=== PATIENT | female | born 1970 ===

== ENCOUNTER 2018-01-19 08:14 | Emergency (ER) | payer OTHER ==
[2018-01-19 08:50] VITALS: BP 110/67
[2018-01-19] MEDS ORDERED: Tetan/Diph/Pertus SYR(Tdap)* 0.5 ML SYR(BOOSTRIX) use SYR IM ONE (09:14)
--- NOTE | 2018-01-19 09:22 | UC ---
Skin Complaint HPI - HPI Summary HPI Summary: Pad of left ring finger on a knife this morning at work. Patient has a 5 mm flap laceration that is not bleeding neuro,motor,circulation,sensory intact distally - History of Current Complaint Chief Complaint: UCLaceration Time Seen by Provider: 01/19/18 09:14 Stated Complaint: (L) RING FINGER LACERATION Hx Obtained From: Patient Hx Last Menstrual Period: 2011-ES, SHE THINKS BUT NOT SURE ?: No Onset/Duration: Sudden Onset, Lasting Days - 1, Still Present Timing: Constant Onset Severity: Mild Current Severity: Mild Pain Intensity: 1 Pain Scale Used: 0-10 Numeric Location: Discrete Aggravating Factor(s): Nothing Alleviating Factor(s): Nothing Associated Signs & Symptoms: Positive: Negative Related History: Trauma - With this chest knife at work - Allergy/Home Medications Allergies/Adverse Reactions: Allergies Allergy/AdvReac Type Severity Reaction Status Date / Time Penicillins Allergy Unknown Nausea And Verified 01/19/18 08:41 Vomiting Home Medications: Home Medications Multivitamin [Multivitamins] 1 cap PO DAILY 01/19/18 [History Confirmed 01/19/18 ] Review of Systems Constitutional: Negative Skin: Other - 5 mm flap laceration pad of left fourth finger Eyes: Negative ENT: Negative Respiratory: Negative Cardiovascular: Negative Gastrointestinal: Negative Genitourinary: Negative Motor: Negative Neurovascular: Negative Musculoskeletal: Negative Neurological: Negative Psychological: Negative Is Patient Immunocompromised?: No All Other Systems Reviewed And Are Negative: Yes PMH/Surg Hx/FS Hx/Imm Hx Previously Healthy: Yes - Surgical History Surgical History: None - Family History Known Family History: Positive: None - Social History Occupation: Employed Full-time Lives: With Family Alcohol Use: None Substance Use Type: None Smoking Status (MU): Heavy Every Day Tobacco Smoker Type: Cigarettes Amount Used/How Often: 3/4 PPD Have You Smoked in the Last Year: Yes Household Exposure Type: Cigarettes Cessation Counseling: Counseled 3+Min - 10 Min - Immunization History Most Recent Tetanus Shot: PT CANT RECALL Physical Exam Triage Information Reviewed: Yes Appearance: Well-Appearing, No Pain Distress, Well-Nourished Vital Signs: Initial Vital Signs Temp 98 F 01/19/18 08:42 Pulse 65 01/19/18 08:42 Resp 16 01/19/18 08:42 BP 110/67 01/19/18 08:42 Pulse Ox 98 01/19/18 08:42 Vital Signs Reviewed: Yes Eye Exam: Normal Eyes: Positive: Conjunctiva Clear ENT Exam: Normal ENT: Positive: Normal ENT inspection, Hearing grossly normal. Negative: Nasal congestion, Trismus, Muffled voice, Hoarse voice Dental Exam: Normal Neck exam: Normal Neck: Positive: Supple, Nontender, No Lymphadenopathy Respiratory Exam: Normal Respiratory: Positive: Chest non-tender, No respiratory distress, No accessory muscle use Cardiovascular Exam: Normal Cardiovascular: Positive: RRR, Pulses Normal, Brisk Capillary Refill Musculoskeletal Exam: Normal Musculoskeletal: Positive: Strength Intact, ROM Intact, No Edema Neurological Exam: Normal Neurological: Positive: Alert, Muscle Tone Normal Psychological Exam: Normal Psychological: Positive: Normal Response To Family Skin: Positive: Other - 5 mm flap laceration to the left fourth finger distally Laceration Repair - Laceration Repair 1 Description: Irregular Laceration Size After Repair: Length (cm) - 0.5, Width (mm) - 1, Depth (mm) - 1 Modified For Repair: No Cleansing Completed Via Routine Prep: Yes Irrigation With Pressure Irrigation Device: Yes Closure Material: Skin Adhesive, SteriStrips Course/Dx - Course Course Of Treatment: Keep wound clean and dry. avoid soap and water for the next 24 hours. Follow with PCP when necessary. smoking cessation information provided - Diagnoses Provider Diagnoses: Nicotine dependent, 5 mm laceration left fourth finger adhesive and steri closure, update tetanus Discharge - Sign-Out/Discharge Documenting (check all that apply): Discharge - Discharge Plan Condition: Stable Disposition: HOME Patient Education Materials: Diphtheria/Acellular Pertussis/Tetanus Booster Vaccine (By injection), How to Stop Smoking (ED), Skin Adhesive Care (ED) Forms: *Work Release Referrals: [facility] [Outside] - If Needed - Billing Disposition and Condition Condition: STABLE Disposition: HOME
== END 2018-01-19 09:44 | disposition home or self-care (01) ==
LOC: UCCORT 08:14
DX: S61.215A Laceration without foreign body of left ring finger without damage to nail, initial encounter (principal); W26.0XXA Contact with knife, initial encounter; Y92.9 Unspecified place or not applicable; F17.210 Nicotine dependence, cigarettes, uncomplicated; Z23 Encounter for immunization; Z88.0 Allergy status to penicillin
CPT/HCPCS: 12001; 90471; 90715; 99201; G0463